=== PATIENT | female | born 1980 | race Caucasian/White ===

== ENCOUNTER 2018-02-27 13:03 | Emergency (ER) | payer OTHER ==
[~2018-02-27] VITALS: Ht 154.9 cm; Wt 54.4 kg
--- NOTE | ~2018-02-27 | PROC ---
[address] [address] PROCEDURE REPORT Name: TIMA CORTEZ Room: [facility] Pratt#: [id number] Admission: 02/27/18 Attend Phys: Discharge: 02/27/18 Date of : 84 Report #: [id number] THIS REPORT FOR: //name// For GI report, please see the Provation report in peceptive 7 content. By: [id number] Records Staff [facility] /NEYMAR
[2018-02-27 13:34] LABS: ABSOLUTE EOSINOPHILS 0.1 thou/uL (0.0-0.7); ABSOLUTE LYMPHOCYTES 3.4 thou/uL (0.8-5.3); ABSOLUTE MONOCYTES 0.7 thou/uL (0.0-1.2); ABSOLUTE NEUTROPHILS 3.2 thou/uL (1.6-8.1); BASOPHILS 0.2 %; EOSINOPHILS 1.5 %; HEMATOCRIT 39.3 % (37.0-47.0); HEMOGLOBIN 13.1 gm/dL (12.0-15.0); LYMPHOCYTES 46.6 %; MCH 29.2 pg (26.0-34.0); MCHC 33.5 g/dL (28.0-37.0); MCV 87.3 fL (80.0-100.0); MPV 7.1 fl. (7.2-11.1); NUCLEATED RBCS 0 /100WBC; PLATELET COUNT* 465 thou/uL (150-400); POLYS 42.7 %; WBC 7.4 thou/uL (4.0-11.0)
[2018-02-27 13:43] LABS: CALCIUM 8.7 mg/dL (8.5-10.1); CREATININE 0.8 mg/dL (0.6-1.3); POTASSIUM 3.7 mmol/L (3.5-5.1)
[2018-02-27 13:48] LABS: ALBUMIN 3.7 g/dL (3.4-5.0); TOTAL BILIRUBIN 0.5 mg/dL (<0.1-1.0); TOTAL PROTEIN 7.5 g/dL (6.4-8.2)
[2018-02-27 16:06] VITALS: BP 124/81
--- NOTE | 2018-04-05 09:07 | PATH ---
[address] [address] PATHOLOGY RPT PROCEDURE Name: TESHA LOPEZ Room: [facility] Pratt#: [id number] Admission: 02/27/18 Date of : 84 Discharge: 02/27/18 Report #: [id number] Path Case #: [id number] [facility] Accession Number: [id number] . 01 Material submitted: . PART A: ESOPHAGEAL BIOPSY AT 33 FOR DYSPAGIA PART B: ESOPHAGEAL BIOPSY AT 28 FOR DYSPAGIA . 01 Clinical history: . Dysphagia . 02 Diagnosis: A and B. Esophageal biopsy at 33 cm and esophageal biopsy at 28 cm: - Moderate chronic esophagitis typical of reflux. See comment. LBQ/03/03/2018 . 02 Comment: Eosinophils average less than 5 per high power field in both biopsies. (LEX/db; 03/03/18) . 02 Electronically signed: . Juwan Leonard MD, Pathologist NPI- [id number] . 01 Gross description: . A. The specimen is received in formalin, labeled "Tesha Lopez, esophageal biopsy at 33" and consists of 2 translucent fragments of soft michele-britton tissue measuring 0.8 x 0.2 x 0.1 cm and 0.4 x 0.2 x 0.1 cm. They are entirely submitted in A1. . B. The specimen is received in formalin, labeled "Tseha Lopez, esophageal biopsy at 28" and consists of a translucent fragment of soft michele-britton tissue measuring 0.4 x 0.3 x 0.1 cm which is entirely submitted in B1. (SDY; 03/01/2018) SYU/SYU . 02 Pathologist provided ICD-10: K20.9 . 02 CPT . 619792, [id number] Specimen Comment: A courtesy copy of this report has been sent to Specimen Comment: [phone], . Specimen Comment: A duplicate report has been generated due to demographic updates. Performed at: [address] [place] [address] PATHOLOGY RPT PROCEDURE Name: TESHA LOPEZ Room: [facility] [place]#: [id number] Admission: 02/27/18 Date of : 84 Discharge: 02/27/18 Report #: [id number] Path Case #: [id number] [address] [facility] [address], [place] [id number] MD Babar Weeks MD Phone: [phone] Performed at: [address] [facility] [address] [place] [id number] MD Juwan Leonard MD Phone: [phone]
== END 2018-02-27 16:07 | disposition still patient (30) ==
LOC: M.ERS 13:03
PROVIDERS: Family Medicine
DX: T18.128A Food in esophagus causing other injury, initial encounter (principal); F17.210 Nicotine dependence, cigarettes, uncomplicated; X58.XXXA Exposure to other specified factors, initial encounter; Y93.89 Activity, other specified; Y92.89 Other specified places as the place of occurrence of the external cause; Y99.8 Other external cause status